=== PATIENT | female | born 1960 | race Caucasian/White ===

== ENCOUNTER 2017-04-23 06:19 | Day surgery (SDC) | payer OTHER ==
[~2017-04-23] VITALS: Ht 152.4 cm; Wt 63.2 kg
[~2017-04-23 06:19] MED LIST: SODIUM CHLORIDE 0.9% 1,000 ML IV ONE
[2017-04-23] MEDS ORDERED: SODIUM CHLORIDE 0.9% 1,000 ML IV ONE (06:30)
[2017-04-23] MEDS ORDERED: TOPI100T37 PO (07:16)
[2017-04-23] MEDS ORDERED: NAPR-58 PO (07:16)
[2017-04-23] MEDS ORDERED: QUET400T PO (07:16)
[2017-04-23] MEDS ORDERED: CITA10TA68 PO (07:16)
[2017-04-23] MEDS ORDERED: FentaNYL CITRATE-PF 100 MCG/2 ML VIAL ONE (07:56)
[2017-04-23] MEDS ORDERED: MIDAZOLAM HCL 2 MG/2 ML VIAL ONE (07:56)
[2017-04-23] MEDS ORDERED: MethylPREDNISolone SOD SUCC 125 MG/2 ML VIAL IVP ONE (08:30)
[2017-04-23] MEDS ORDERED: MethylPREDNISolone SOD SUCC 125 MG/2 ML VIAL ONE (09:03)
[2017-04-23] MEDS ORDERED: BENZOCAINE 20% 50 MCG/SPRAY 57 GM TP ONE (12:00)
[2017-04-23] MEDS ORDERED: LIDOCAINE HCL 2% 30 ML JELLY TP ONE (12:00)
[2017-04-23] MEDS ORDERED: EPINEPHrine 1:1,000 [1 MG/ML] AMP IM ONE (12:00)
[2017-04-23] MEDS ORDERED: LIDOCAINE HCL 4% 50 ML SOLUTION TP ONE (12:00)
[2017-04-23] MEDS ORDERED: OXYGEN THERAPY IH SCH (20:00)
== END 2017-04-23 10:00 | disposition home or self-care (01) ==
LOC: SURGERY 06:19
PROVIDERS: ATTEND Internal Medicine Critical Care Medicine
DX: J38.4 Edema of larynx (principal); B37.0 Candidal stomatitis; F17.210 Nicotine dependence, cigarettes, uncomplicated; M19.90 Unspecified osteoarthritis, unspecified site; I10 Essential (primary) hypertension; F03.90 Unspecified dementia, unspecified severity, without behavioral disturbance, psychotic disturbance, mood disturbance, and anxiety; M81.0 Age-related osteoporosis without current pathological fracture; Z98.890 Other specified postprocedural states; Z90.722 Acquired absence of ovaries, bilateral; Z88.2 Allergy status to sulfonamides; Z79.899 Other long term (current) drug therapy
CPT/HCPCS: 31623; 31624; 71010; 87015 ×2; 87070; 87101; 87205; 87220; 88108; 88312; J0171; J2250; J2930; J3010; J7030

== ENCOUNTER 2017-08-02 14:22 | Emergency (ER) | payer OTHER ==
[~2017-08-02] VITALS: Ht 160 cm; Wt 64.5 kg
[~2017-08-02 14:22] MED LIST changes: +CITA10TA68 PO; +NAPR-58 PO; +QUET400T PO; -SODIUM CHLORIDE 0.9% 1,000 ML IV ONE; +TOPI100T37 PO
[2017-08-02 14:24] VITALS: BP 130/78
== END 2017-08-02 17:01 | disposition left against medical advice (07) ==
LOC: EMS 14:24
DX: Z53.21 Procedure and treatment not carried out due to patient leaving prior to being seen by health care provider (principal)